=== PATIENT | female | born 1960 | race American Indian/Alaskan Native ===

== ENCOUNTER 2019-06-02 06:28 | Observation (INO) | payer OTHER ==
[2019-06-02] MEDS ORDERED: ASPIRIN PO ONE (06:45)
--- NOTE | 2019-06-02 07:20 | XRay Report ---
CHEST 1 VIEW 0655 INDICATION / CLINICAL INFORMATION: Left chest pain with radiation to left upper extremity, shortness of breath, diaphoresis, beginning tonight just before arrival. COMPARISON: None available. FINDINGS: SUPPORT DEVICES: None HEART / MEDIASTINUM: No significant abnormality. LUNGS / PLEURA: No significant pulmonary or pleural abnormality. No pneumothorax. ADDITIONAL FINDINGS: No significant additional findings. IMPRESSION: No significant acute abnormality Signer Name: Kevin Stern MD Signed: 06/02/2019 7:15 AM Workstation Name: General Specific
[2019-06-02 07:46] LABS: Basophils # (Auto) 0.1 K/mm3 (0.0-0.1); Basophils % (Auto) 1.1 % (0.0-1.8); Eosinophils # (Auto) 0.2 K/mm3 (0.0-0.4); Eosinophils % (Auto) 2.3 % (0.0-4.3); Hemoglobin 11.7 gm/dl (10.1-14.3); Lymphocytes # (Auto) 2.7 K/mm3 (1.2-5.4); Mean Corpuscular HGB Conc 32 % (30-34); Mean Corpuscular Volume 70 fl (79-97); Monocytes # (Auto) 0.7 K/mm3 (0.0-0.8); Monocytes % (Auto) 9.7 % (0.0-7.3); Platelet Count 264 K/mm3 (140-440); Red Blood Count 5.26 M/mm3 (3.65-5.03); Red Cell Distribution Width 17.9 % (13.2-15.2)
--- NOTE | 2019-06-02 08:22 | Emergency Department Report ---
ED Chest Pain HPI - General Chief Complaint: Chest Pain Stated Complaint: CHEST PAIN Time Seen by Provider: 06/02/19 07:39 Source: EMS Mode of arrival: Stretcher Limitations: No Limitations - History of Present Illness Initial Comments: 59-year-old female the past medical history of [id number] diabetes, hypertension, and elevated cholesterol presents to the Hospital complaints of sudden onset of chest pressure. Symptoms started 45 minutes prior to arrival. Substernal chest pressure woke patient up from sleep with associated shortness of breath, clammy feeling, and lightheadedness. Patient states she thought she was going to pass out. She also reports some cramping to left upper face and felt like her tongue was currently during episode. Patient chewed 4 baby aspirins as instructed by 911. No further meds provided by EMS. Pain resolved shortly after arrival to the ED. Last last stress test was greater than 5 years ago. Patient takes aspirin 81 mg daily and is compliant with her medications for her chronic medical conditions. Patient traveled to [place] in March. No patient denies calf tenderness or leg edema. Denies previous history of DVT/PE. PMD: Zarate Severity scale (0 -10): 7 - Related Data Allergies Allergy/AdvReac Type Severity Reaction Status Date / Time No Known Allergies Allergy Verified 06/02/19 06:44 Heart Score - HEART Score History: Moderately suspicious EKG: Normal Age: 45-65 Risk factors: > 3 risk factors or hx of atherosclerotic disease Troponin: < normal limit HEART Score: 4 ED Review of Systems ROS: Stated complaint: CHEST PAIN Other details as noted in HPI Comment: All other systems reviewed and negative ED Past Medical Hx - Past Medical History Previous Medical History?: Yes Hx Hypertension: Yes Hx Diabetes: Yes - Surgical History Past Surgical History?: No - Social History Smoking Status: Unknown if ever smoked ED Physical Exam - General Limitations: No Limitations - Other Other exam information: Gen.: No acute distress Head: Atraumatic Eyes: Normal appearance EENT: Moist mucous membranes Neck: Normal appearance, no posterior midline tenderness, no meningismus Chest: Clear to auscultation bilaterally Cardiovascular: Regular rate and rhythm Abdomen: Normal appearance, soft, nontender, no rebound or guarding, normal bowel sounds Back: Normal appearance, nontender Extremity: Full range of motion, normal appearance Neuro: Alert, clear speech, no focal motor or sensory deficit Psychiatric: Appropriate Skin: No rash ED Course Vital Signs 06/02/19 06/02/19 06/02/19 06:42 06:45 07:27 Temperature 97.9 F Pulse Rate 74 75 Respiratory 18 18 15 Rate Blood Pressure 117/78 Blood Pressure 118/70 [Left] O2 Sat by Pulse 100 100 Oximetry - Consultations Consultation #1: 06/02/19 09:21 pt is [facility], called [facility] and pt does not have [facility] coverage SELENE score - Selene Score Age > 65: (0) No Aspirin use within the Past 7 Days: (1) Yes 3 or more CAD Risk Factors: (1) Yes 2 or more Angina events in past 24 hrs: (0) No Known CAD with more than 50% Stenosis: (0) No Elevated Cardiac Markers: (0) No ST Deviation Greater than 0.5mm: (0) No SELENE Score: 2 ED Medical Decision Making - Lab Data Result diagrams: 06/02/19 07:11 06/02/19 07:11 Lab Results 06/02/19 06/02/19 Range/Units 07:11 07:11 WBC 7.0 (4.5-11.0) K/mm3 RBC 5.26 H (3.65-5.03) M/mm3 Hgb 11.7 (10.1-14.3) gm/dl Hct 37.0 (30.3-42.9) % MCV 70 L (79-97) fl MCH 22 L (28-32) pg MCHC 32 (30-34) % RDW 17.9 H (13.2-15.2) % Plt Count 264 (140-440) K/mm3 Lymph % (Auto) 39.0 H (13.4-35.0) % [place] % (Auto) 9.7 H (0.0-7.3) % Eos % (Auto) 2.3 (0.0-4.3) % Baso % (Auto) 1.1 (0.0-1.8) % Lymph # 2.7 (1.2-5.4) K/mm3 [place] # 0.7 (0.0-0.8) K/mm3 Eos # 0.2 (0.0-0.4) K/mm3 Baso # 0.1 (0.0-0.1) K/mm3 Seg Neutrophils % 47.9 (40.0-70.0) % Seg Neutrophils # 3.4 (1.8-7.7) K/mm3 Sodium 139 (137-145) mmol/L Potassium 4.2 (3.6-5.0) mmol/L Chloride 97.9 L (98-107) mmol/L Carbon Dioxide 24 (22-30) mmol/L Anion Gap 21 mmol/L BUN 15 (7-17) mg/dL Creatinine 0.8 (0.7-1.2) mg/dL Estimated GFR > 60 ml/min BUN/Creatinine Ratio 19 % Glucose 173 H (65-100) mg/dL Calcium 9.4 (8.4-10.2) mg/dL Troponin T < 0.010 (0.00-0.029) ng/mL - EKG Data -: EKG Interpreted by Me EKG shows normal: sinus rhythm, ST-T waves (no stemi) Rate: normal - Radiology Data Radiology results: report reviewed CHEST 1 VIEW 0655 INDICATION / CLINICAL INFORMATION: Left chest pain with radiation to left upper extremity, shortness of breath, diaphoresis, beginning tonight just before arrival. COMPARISON: None available. FINDINGS: SUPPORT DEVICES: None HEART / MEDIASTINUM: No significant abnormality. LUNGS / PLEURA: No significant pulmonary or pleural abnormality. No pneumothorax. ADDITIONAL FINDINGS: No significant additional findings. IMPRESSION: No significant acute abnormality - Medical Decision Making + chest pressure trop neg heart score 4 will admit for workup not approved for admission to [facility]. - Differential Diagnosis atypical chest pain, NC, unstable angina, PE Critical Care Time: No Critical care attestation.: If time is entered above; I have spent that time in minutes in the direct care of this critically ill patient, excluding procedure time. ED Disposition Clinical Impression: Chest pain, HTN (hypertension), Diabetes, Elevated cholesterol Disposition: OP ADMIT IP TO THIS HOSP Is pt being admited?: Yes Condition: Stable Time of Disposition: 09:24 (Dr mo/hospitalist)
[2019-06-02 08:33] LABS: BUN/Creatinine Ratio 19; Blood Urea Nitrogen 15 mg/dL (7-17); Calcium 9.4 mg/dL (8.4-10.2); Hemolysis Index 3
[2019-06-02 14:21] LABS: Chol/HDL Ratio 2.45 %
--- NOTE | 2019-06-02 15:31 | History and Physical Report ---
History of Present Illness Date of examination: 06/02/19 Date of admission: 06/02/19 09:32 Chief complaint: Chest pain History of present illness: 59-yr old female patient with significant history of type 2 diabetes mellitus hypertension dyslipidemia bronchial asthma follows with [facility] Presented to the emergency room with left-sided chest pain intermittent since early this morning . Retrosternal pain , rates between 6-7/10 at its peak intermittent also complains of some cramping associated with nausea no vomiting Patient denies orthopnea or paroxysmal nocturnal dyspnea, never had cardiac problems in the past never had workup At the time of my evaluation patient's chest pain significantly improved. Past History Past Medical History: diabetes, hypertension Past Surgical History: denies: No surgical history Social history: denies: smoking, alcohol abuse, prescription drug abuse Family history: hypertension Medications and Allergies Allergies Allergy/AdvReac Type Severity Reaction Status Date / Time No Known Allergies Allergy Verified 06/02/19 06:44 Home Medications Medication Instructions Recorded Confirmed Last Taken Type Aspirin 81 mg PO DAILY 06/02/19 06/02/19 Unknown History Baclofen 10 mg PO TID 06/02/19 06/02/19 Unknown History Hydrochlorothiazide 25 mg PO DAILY 06/02/19 06/02/19 Unknown History Norvasc 10 mg PO DAILY 06/02/19 06/02/19 Unknown History RX: Amoxicillin [Amoxicillin TAB] 875 mg PO BID 06/02/19 06/02/19 Unknown History RX: Ciclesonide [Alvesco 80 mcg .ROUTE PRN 06/02/19 06/02/19 Unknown History 80MCG/PUFF] RX: Glimepiride [Amaryl] 2 mg PO DAILY 06/02/19 06/02/19 Unknown History RX: Lisinopril [Zestril TAB] 2.5 mg PO DAILY 06/02/19 06/02/19 Unknown History RX: Montelukast [Singulair] 10 mg PO DAILY 06/02/19 06/02/19 Unknown History RX: Rosuvastatin Calcium [Crestor] 10 mg PO DAILY 06/02/19 06/02/19 Unknown History RX: metFORMIN [Glucophage] 1,000 mg PO BID 06/02/19 06/02/19 Unknown History Famotidine [Pepcid] 20 mg PO BID #30 tablet 06/03/19 Unknown Rx oxyCODONE /ACETAMINOPHEN [Percocet 1 tab PO BID PRN #6 tablet 06/03/19 Unknown Rx 5/325] Review of Systems Constitutional: fatigue, no weight loss, no weight gain, no fever, no chills Ears, nose, mouth and throat: no nasal congestion, no nasal discharge Cardiovascular: chest pain, lightheadedness, no orthopnea, no palpitations, no syncope, no shortness of breath Respiratory: no cough, no shortness of breath Gastrointestinal: no abdominal pain, no nausea, no vomiting Genitourinary Female: no pelvic pain, no dysuria Musculoskeletal: no myalgias, no arthritis Integumentary: no rash, no lesions Neurological: weakness, no numbness, no tingling, no seizures Psychiatric: no anxiety, no depression Endocrine: no cold intolerance, no heat intolerance Hematologic/Lymphatic: no easy bruising, no easy bleeding Allergic/Immunologic: no urticaria, no allergic rhinitis Exam - Constitutional Vitals: Temp Pulse Resp BP Pulse Ox 97.9 F 70 16 114/69 100 06/02/19 06:42 06/02/19 09:30 06/02/19 09:30 06/02/19 09:30 06/02/19 09:30 General appearance: Present: no acute distress, well-nourished - EENT Eyes: Present: PERRL, EOM intact - Neck Neck: Present: supple, normal ROM - Respiratory Respiratory effort: normal Respiratory: bilateral: diminished, negative: rales, rhonchi, wheezing - Cardiovascular Rhythm: regular Heart Sounds: Present: S1 & S2 - Extremities Extremities: no ischemia, No edema - Abdominal General gastrointestinal: Present: soft, non-tender, non-distended, normal bowel sounds - Integumentary Integumentary: Present: clear, warm - Musculoskeletal Musculoskeletal: strength equal bilaterally, generalized weakness - Psychiatric Psychiatric: appropriate mood/affect, cooperative - Neurologic Neurologic: CNII-XII intact, moves all extremities Results - Labs CBC & Chem 7: 06/02/19 07:11 06/02/19 07:11 Labs: Abnormal lab results 06/02/19 06/02/19 06/02/19 Range/Units 07:11 07:11 12:48 RBC 5.26 H (3.65-5.03) M/mm3 MCV 70 L (79-97) fl MCH 22 L (28-32) pg RDW 17.9 H (13.2-15.2) % Lymph % (Auto) 39.0 H (13.4-35.0) % [place] % (Auto) 9.7 H (0.0-7.3) % Chloride 97.9 L (98-107) mmol/L Glucose 173 H (65-100) mg/dL POC Glucose (70-105) Hemoglobin A1c 7.3 H (4-6) % 06/02/19 Range/Units 14:17 RBC (3.65-5.03) M/mm3 MCV (79-97) fl MCH (28-32) pg RDW (13.2-15.2) % Lymph % (Auto) (13.4-35.0) % [place] % (Auto) (0.0-7.3) % Chloride (98-107) mmol/L Glucose (65-100) mg/dL POC Glucose 223 H (70-105) Hemoglobin A1c (4-6) % Assessment and Plan --Chest Pain /Angina; Serial cardiac enzymes, aspirin and beta blockers nitrate statins pain medications Echocardiogram, cardiology consult Patient has multiple risk factors, would benefit by Lexiscan stress test --Type 2 Diabetes; Accu-Chek sliding scale coverage and ADA diet Insulin as needed --Hypertension; history of antihypertensives When necessary hydralazine --h/o Bronchial asthma; oxygen nebulizers as needed Resume home medications --DVT prophylaxis; Lovenox The closely and adjust the management as needed Plan of care is reviewed with the patient family member at the bedside Follow-up cardiology evaluation, Follow stress test Referring attending patient is stable and will be discharged home tomorrow
[2019-06-02] MEDS ORDERED: MORPHINE IV PRN (15:33)
[2019-06-02] MEDS ORDERED: NITROSTAT SL PRN (15:33)
[2019-06-02] MEDS: HumaLOG SUB-Q SCH ×2 (18:10→21:58)
[2019-06-02] MEDS ORDERED: CICLESONIDE 80 MCG SCH (18:45)
[2019-06-02] MEDS: LOPRESSOR PO SCH (21:57)
[2019-06-02] MEDS ORDERED: LOVENOX SUB-Q SCH (22:00)
[2019-06-03] MEDS: HumaLOG SUB-Q SCH ×2 (07:30→12:30)
[2019-06-03] MEDS ORDERED: LEXISCAN IV ONE (10:00)
[2019-06-03] MEDS ORDERED: ZESTRIL PO SCH (10:00)
[2019-06-03] MEDS ORDERED: HCTZ PO SCH (10:00)
[2019-06-03] MEDS ORDERED: NON-FORMULARY (Lisinopril [Zestril Tab] 2.5 MG) PO SCH (10:00)
[2019-06-03] MEDS ORDERED: ECOTRIN PO SCH (10:00)
[2019-06-03] MEDS ORDERED: SINGULAIR PO SCH (10:00)
[2019-06-03] MEDS ORDERED: NON-FORMULARY (Rosuvastatin Calcium [Crestor] 10 MG) PO SCH (10:00)
[2019-06-03] MEDS ORDERED: NON-FORMULARY (Hydrochlorothiazide 25 MG) PO SCH (10:00)
--- NOTE | 2019-06-03 10:47 | Consultation ---
History of Present Illness Consult date: 06/03/19 Requesting physician: CARTER FERRER Consult reason: chest pain History of present illness: the pt is a 59-year-old female [facility] pt with a past medical history of HTN, DM, HLP. She presented with c/o chest pain. She states that for the past 1.5 months, she has been experiencing intermittent substernal chest pressure and the pressure became quite severe yesterday and thus she decided to seek medical attention. The pain is sometimes associated with SOB. The pain is sometimes aggravated by exertion. Additionally, pt reports that she developed dizziness and left-sided facial numbness yesterday. She was scared she was having a stroke. She denies any palpitations, n/v, diaphoresis, or syncope. Pt denies any known prior cardiac issues, including CAD, AMI, HF or arrhythmia. She regularly sees PCP at [facility]. Past History Past Medical History: diabetes, hypertension, hyperlipidemia Past Surgical History: appendectomy, hysterectomy Social history: denies: smoking, alcohol abuse, prescription drug abuse Family history: hypertension Medications and Allergies Allergies Allergy/AdvReac Type Severity Reaction Status Date / Time No Known Allergies Allergy Verified 06/02/19 06:44 Home Medications Medication Instructions Recorded Confirmed Last Taken Type Amoxicillin [Amoxicillin TAB] 875 mg PO BID 06/02/19 06/02/19 Unknown History Aspirin 81 mg PO DAILY 06/02/19 06/02/19 Unknown History Baclofen 10 mg PO TID 06/02/19 06/02/19 Unknown History Ciclesonide [Alvesco 80MCG/PUFF] 80 mcg .ROUTE PRN 06/02/19 06/02/19 Unknown History Glimepiride [Amaryl] 2 mg PO DAILY 06/02/19 06/02/19 Unknown History Hydrochlorothiazide 25 mg PO DAILY 06/02/19 06/02/19 Unknown History Ibuprofen [Motrin 800 MG tab] 800 mg PO TID 06/02/19 06/02/19 Unknown History Lisinopril [Zestril TAB] 2.5 mg PO DAILY 06/02/19 06/02/19 Unknown History Montelukast [Singulair] 10 mg PO DAILY 06/02/19 06/02/19 Unknown History Norvasc 10 mg PO DAILY 06/02/19 06/02/19 Unknown History Rosuvastatin Calcium [Crestor] 10 mg PO DAILY 06/02/19 06/02/19 Unknown History hydroCHLOROthiazide 25 mg PO DAILY 06/02/19 06/02/19 Unknown History [Hydrochlorothiazide] metFORMIN [Glucophage] 1,000 mg PO BID 06/02/19 06/02/19 Unknown History Active Meds: Active Medications Aspirin (Ecotrin) 325 mg PO QDAY [facility] Atorvastatin Calcium (Lipitor) 20 mg PO QHS [facility] Last Admin: 06/02/19 21:57 Dose: 20 mg Documented by: Enoxaparin Sodium (Lovenox) 40 mg SUB-Q QDAY@2200 [facility] Last Admin: 06/02/19 21:58 Dose: 40 mg Documented by: Hydrochlorothiazide (Hctz) 25 mg PO QDAY [facility] Insulin Human Lispro (Humalog) 0 unit SUB-Q [facility]; Protocol Last Admin: 06/02/19 21:58 Dose: 2 unit Documented by: Lisinopril (Zestril) 2.5 mg PO QDAY [facility] Metoprolol Tartrate (Lopressor) 12.5 mg PO BID [facility] Last Admin: 06/02/19 21:57 Dose: 12.5 mg Documented by: Miscellaneous Medication (Ciclesonide [Alvesco 80mcg/Puff]) 80 mcg .ROUTE PRN [facility] Montelukast Sodium (Singulair) 10 mg PO DAILY [facility] Morphine Sulfate (Morphine) 2 mg IV Q4H PRN PRN Reason: Pain, Moderate (4-6) Nitroglycerin (Nitrostat) 0.4 mg SL .Q5MIN PRN PRN Reason: Chest Pain Review of Systems Constitutional: no weight loss, no weight gain, no fever, no chills, no sweats Ears, nose, mouth and throat: no ear pain, no nose pain, no sinus pressure, no sinus pain Cardiovascular: chest pain, lightheadedness, shortness of breath, no orthopnea, no palpitations, no rapid/irregular heart beat, no edema, no syncope, no leg edema Respiratory: shortness of breath, no cough, no congestion, no wheezing, no pain on inspiration Gastrointestinal: no abdominal pain, no nausea, no vomiting, no diarrhea, no constipation, no change in bowel habits Genitourinary Female: no pelvic pain, no flank pain, no dysuria, no urinary frequency, no urgency Musculoskeletal: no neck stiffness, no neck pain, no shooting arm pain, no arm numbness/tingling, no low back pain, no shooting leg pain Integumentary: no rash, no pruritis, no redness, no sores, no wounds Neurological: numbness (left-sided facial, now resolved), no head injury, no paralysis, no weakness, no seizures, no syncope Psychiatric: no anxiety Endocrine: no cold intolerance, no heat intolerance Hematologic/Lymphatic: no easy bruising, no easy bleeding Allergic/Immunologic: no urticaria, no wheezing Physical Examination Vital Signs Temp Pulse Resp BP Pulse Ox 97.9 F 74 18 117/78 100 06/02/19 06:42 06/02/19 06:42 06/02/19 06:42 06/02/19 06:42 06/02/19 06:42 General appearance: no acute distress HEENT: Positive: PERRL, Normocephaly, Mucus Membranes Moist Neck: Positive: neck supple, trachea midline Cardiac: Positive: Reg Rate and Rhythm, S1/S2 Lungs: Positive: Decreased Breath Sounds Neuro: Positive: Grossly Intact Abdomen: Negative: Tender Skin: Negative: Rash Musculoskeletal: No Pain Extremities: Absent: edema Results 06/02/19 07:11 06/02/19 07:11 Lipids 06/02/19 Range/Units 12:48 Triglycerides 70 (2-149) mg/dL Cholesterol 108 (50-199) mg/dL HDL Cholesterol 44 (40-59) mg/dL Cholesterol/HDL Ratio 2.45 % - Imaging and Cardiology Echo: pending EKG: report reviewed, image reviewed EKG interpretations - Telemetry EKG Rhythm: Sinus Rhythm - EKG Sinus rhythms and dysrhythmias: sinus rhythm Assessment and Plan S/p lexiscan MPI stress test this AM which was negative. Chest pain currently resolved. Obtain DDimer. Pending DDimer is negative, pt may discharge home from cardiology standpoint. Recommend pt follow up with [facility] within 1-2 weeks of hospital discharge. The patient has been seen in conjunction with Dr. Christine Hickey who agrees with the assessment and plan of care. - Patient Problems (1) Chest pain Current Visit: Yes Status: Resolved (2) HTN (hypertension) Current Visit: Yes Status: Chronic (3) Hyperlipidemia Current Visit: Yes Status: Chronic (4) Diabetes Current Visit: Yes Status: Chronic
[2019-06-03] MEDS: LOPRESSOR PO SCH (12:29)
--- NOTE | 2019-06-03 15:51 | Discharge Summary ---
Providers - Providers Date of Admission: 06/02/19 09:32 Date of discharge: 06/03/19 Attending physician: CARTER FERRER 06/02/19 15:37 Consult to Physician [CONS] Routine Comment: Consulting Provider: SEEMA BARRETT Physician Instructions: Reason For Exam: chest pain/risk factors/stresstest Primary care physician: [facility], Hospitalization Reason for admission: chest pain Condition: Stable Pertinent studies: Chest x-ray; no acute abnormality Echo ; normal EF 55-60% Stress test; negative for ischemia Hospital course: 59-yr old female patient with significant history of type 2 diabetes mellitus hypertension dyslipidemia bronchial asthma follows with [facility] Presented to the emergency room with left-sided chest pain intermittent since early this morning . Retrosternal pain , rates between 6-7/10 at its peak intermittent also complains of some cramping associated with nausea no vomiting Patient denies orthopnea or paroxysmal nocturnal dyspnea, never had cardiac problems in the past never had workup At the time of my evaluation patient's chest pain significantly improved. Admitted appropriately managed subsequently underwent stress test as patient had multiple risk factors, stress test was negative for ischemia Ejection fraction within normal limits, cardiology evaluated the patient, d- dimer is negative Patient's symptoms significantly improved, chest pain probably secondary to noncardiac reasons and possible GERD Advised Pepcid, follow up with primary care physician and cardiology as needed patient is stable at discharge Discharge diagnosis; --Chest Pain /Angina; noncardiac, d-dimer is within normal limits and Stress test negative, left ventricular ejection fraction normal range Chest pain probably secondary to GERD --GERD; Pepcid, supportive care --Type 2 Diabetes; Accu-Chek sliding scale coverage and ADA diet Insulin as needed --Hypertension; moderate control, continue antihypertensives When necessary hydralazine --h/o Bronchial asthma; oxygen nebulizers as needed Resume home medications --DVT prophylaxis; Lovenox Stable for discharge, follow up with primary care physician Follow-up with cardiology as needed Patient is stable at discharge Disposition: DC-01 TO HOME OR SELFCARE Time spent for discharge: 32 min Core Measure Documentation - Palliative Care Palliative Care/ Comfort Measures: Not Applicable - Core Measures Any of the following diagnoses?: none Exam - Constitutional Vitals: Temp Pulse Resp BP Pulse Ox 97.9 F 86 18 126/65 97 06/03/19 03:59 06/03/19 10:47 06/03/19 08:04 06/03/19 10:59 06/03/19 08:04 General appearance: Present: no acute distress, well-nourished - EENT Eyes: Present: PERRL, EOM intact - Neck Neck: Present: supple, normal ROM - Respiratory Respiratory effort: normal Respiratory: bilateral: diminished, negative: rales, rhonchi, wheezing - Cardiovascular Rhythm: regular Heart Sounds: Present: S1 & S2 - Extremities Extremities: no ischemia, No edema - Abdominal General gastrointestinal: Present: soft, non-tender, non-distended, normal bowel sounds - Integumentary Integumentary: Present: clear, warm - Musculoskeletal Musculoskeletal: strength equal bilaterally, generalized weakness - Psychiatric Psychiatric: appropriate mood/affect, cooperative - Neurologic Neurologic: CNII-XII intact, moves all extremities Plan Activity: advance as tolerated Diet: diabetic Additional Instructions: If you have chest pain or shortness of breath contact M.D. or go to emergency room Follow up with: REAGAN CANADA MD [Primary Care Provider] - 7 Days HILDA SLOAN MD [Staff Physician] - 7 Days Prescriptions: Famotidine [Pepcid] 20 mg PO BID #30 tablet oxyCODONE /ACETAMINOPHEN [Percocet 5/325] 1 tab PO BID PRN #6 tablet PRN Reason: Pain
[2019-06-03 16:13] VITALS: BP 133/58
--- NOTE | 2019-06-03 22:55 | Treadmill Report ---
NUCLEAR PERFUSION SCAN REFERRING PHYSICIAN: Zenaida Turcios MD PROTOCOL: The patient was brought to the stress lab in postoperative state, given 10 mCi of technetium 99m at rest. The patient underwent rest imaging. The patient underwent Lexiscan stress test. At peak stress, the patient was given 26 mCi of technetium 99m. Shortly thereafter, the patient underwent stress imaging. Raw imaging reveals mild GI artifact, no significant motion artifact. SPECT images examined carefully in horizontal long axis, vertical long axis, short axis views. There is normal homogenous uptake of radioisotope in all reported segments. No evidence of significant fixed or reversible perfusion defects suggestive of prior infarction or ischemia. Gated wall motion reveals normal systolic thickening, calculated ejection fraction of 70%. No TID. CONCLUSIONS: 1. Normal myocardial perfusion scan without evidence of active ischemia or prior infarction. 2. Normal left ventricular systolic performance without evidence of transient ischemic dilatation or stress-induced segmental wall motion abnormalities. 3. Normal Lexiscan stress test without evidence of diagnostic ST changes; arrhythmias or chest pain during stress or recovery. JOB# [id number] AUTUMN/SREE
== END 2019-06-03 18:30 | disposition home or self-care (01) ==
LOC: ED 06:28 → 4A 09:32 → INTOOBSV 09:32
PROVIDERS: ADMIT Internal Medicine; ATTEND Internal Medicine
DX: R07.89 Other chest pain (principal); I10 Essential (primary) hypertension; E11.9 Type 2 diabetes mellitus without complications; J45.909 Unspecified asthma, uncomplicated; E78.5 Hyperlipidemia, unspecified; Z79.82 Long term (current) use of aspirin; Z79.84 Long term (current) use of oral hypoglycemic drugs; Z90.49 Acquired absence of other specified parts of digestive tract; Z90.710 Acquired absence of both cervix and uterus
CPT/HCPCS: 36415; 71045; 78452; 80048; 80061; 82962; 83036; 84484; 85025; 85379; 93005; 93010; 93017; 93306; 96372; 99284; A9270; A9502; G0378; J1650; J2785; J1815